=== PATIENT | female | born 1985 | race American Indian/Alaskan Native ===

== ENCOUNTER 2022-02-01 22:38 | Emergency (ER) | payer MEDICAID ==
[2022-02-01 23:03] VITALS: BP 135/91
[2022-02-02] MEDS ORDERED: ACETAMINOPHEN 500 MG TAB PO ONE (01:14)
[2022-02-02] MEDS ORDERED: IBUPROFEN 600 MG TAB PO ONE (01:14)
--- NOTE | 2022-02-02 02:51 | Cat Scan Report ---
CT CERVICAL SPINE WITHOUT CONTRAST INDICATION / CLINICAL INFORMATION: HEAD INJURY FROM A FALL, NOW WITH NECK PAIN. TECHNIQUE: Axial CT images were obtained through the cervical spine. Sagittal and coronal reformatted images were produced. All CT scans at this location are performed using CT dose reduction for ALARA by means of automated exposure control. COMPARISON: None available. FINDINGS: SKULL BASE: No significant abnormality of the skull base. CRANIOCERVICAL JUNCTION: No significant abnormality of the craniocervical junction. ALIGNMENT: No significant abnormality of alignment. VERTEBRAL BODIES: Vertebral body heights fairly uniform throughout. No acute fracture. DISK SPACES: Disk spaces are fairly uniform throughout. FACET JOINTS: No significant abnormality of facet articulations. No acute fractures. CENTRAL CANAL: No severe central stenosis. SOFT TISSUES: No significant abnormality of soft tissues or musculature. THYROID: No significant abnormality. UPPER CHEST: No significant abnormality of the visualized chest. ADDITIONAL FINDINGS: None. IMPRESSION: 1. No evidence of acute osseous injury. Signer Name: Lazaro Holliday II, MD Signed: 02/02/2022 2:47 AM Workstation Name: [id number]
--- NOTE | 2022-02-02 02:51 | Cat Scan Report ---
CT HEAD WITHOUT CONTRAST INDICATION / CLINICAL INFORMATION: HEAD INJURY FROM A FALL, NOW WITH HEAD PAIN. TECHNIQUE: CT head was performed without administration of intravenous contrast. All CT scans at this location are performed using CT dose reduction for ALARA by means of automated exposure control. COMPARISON: None available. FINDINGS: CEREBRAL HEMISPHERES: There is no evidence of large territorial infarction or significant abnormality of gibbons-white matter differentiation. Ventricles within normal limits. No midline shift. Basal ciste rns patent. HEMORRHAGE: None. CEREBELLUM / BRAINSTEM: No significant abnormality. ORBITS: No significant abnormality. SOFT TISSUES: No significant abnormality. SKULL: No significant abnormality. PARANASAL SINUSES / MASTOID AIR CELLS: Normal as visualized. ADDITIONAL FINDINGS: None. IMPRESSION: 1. No acute intracranial abnormality. Signer Name: Lazaro Holliday II, MD Signed: 02/02/2022 2:46 AM Workstation Name: [id number]
--- NOTE | 2022-02-02 03:03 | Emergency Department Report ---
ED Head Trauma HPI - General Chief complaint: Head Injury Stated complaint: FALL/HEAD/BODY PAIN Source: patient Mode of arrival: Ambulatory Limitations: No Limitations - History of Present Illness Initial comments: Patient is a 36-year-old -[place] female with no past medical history who presents to the ED with complaint of acute onset persistent headache, neck pain after she tripped at home and fell down hitting her neck and her head on a piece of furniture about 4 hours ago. Patient states that she has been experiencing lightheadedness persistently with blurry vision since the incident occurred 4 hours ago. Patient denies loss of consciousness, dizziness, syncope, seizures, nausea and vomiting, change in vision, numbness and tingling or weakness of upper extremities bilaterally, low back pain, chest pain, dental injury or hearing loss. MD Complaint: head injury, other (Neck pain) -: Sudden, hour(s) (4) Arrival Conditions: Negative: C-spine immobilization present, spinal board immobilization present Mechanism of Injury: mechanical fall Location: occipital Loss of Consciousness: no Previous Trauma to this Area: No Place: home Radiation: none Severity: severe Severity scale (0 -10): 7 Quality: sharp, aching Consistency: constant Provoking factors: none known Other Injuries: none Associated Symptoms: denies other symptoms, vision changes (Blurry vision), neck pain. denies: confusion, amnesia, repetitive questioning, nausea, vomiting, vertigo, syncope, numbness, weakness, tingling - Related Data Previous Rx's Medication Instructions Recorded Last Taken Type Ibuprofen [Motrin] 800 mg PO Q8HR PRN #30 tablet 02/02/22 Unknown Rx methOCARBAMOL [Robaxin TAB] 750 mg PO Q8H PRN #21 tab 02/02/22 Unknown Rx Allergies/Adverse reactions: Allergies Allergy/AdvReac Type Severity Reaction Status Date / Time No Known Drug Allergies Allergy Unknown Unknown Verified 02/02/22 01:53 ED Review of Systems ROS: Stated complaint: FALL/HEAD/BODY PAIN Other details as noted in HPI Constitutional: denies: chills, fever Eyes: denies: eye pain, eye discharge, vision change ENT: denies: ear pain, throat pain Respiratory: denies: cough, shortness of breath, wheezing Cardiovascular: denies: chest pain, palpitations Endocrine: no symptoms reported Gastrointestinal: denies: abdominal pain, nausea, diarrhea Genitourinary: denies: urgency, dysuria, discharge Musculoskeletal: arthralgia (Neck pain). denies: back pain, joint swelling Skin: denies: rash, lesions Neurological: headache. denies: weakness, paresthesias Psychiatric: denies: anxiety, depression Hematological/Lymphatic: denies: easy bleeding, easy bruising ED Past Medical Hx - Medications Home Medications: Home Medications Medication Instructions Recorded Confirmed Last Taken Type Ibuprofen [Motrin] 800 mg PO Q8HR PRN #30 tablet 02/02/22 Unknown Rx methOCARBAMOL [Robaxin TAB] 750 mg PO Q8H PRN #21 tab 02/02/22 Unknown Rx ED Physical Exam - General Limitations: No Limitations General appearance: alert, in no apparent distress - Head Head exam: Present: atraumatic, normocephalic, normal inspection - Eye Eye exam: Present: normal appearance, PERRL, EOMI Pupils: Present: normal accommodation - ENT ENT exam: Present: normal exam, normal orophraynx, mucous membranes moist, TM's normal bilaterally, normal external ear exam - Neck Neck exam: Present: normal inspection, tenderness (Palpable cervical paraspinal musculoskeletal tenderness), full ROM, other (No cervical midline tenderness) - Respiratory Respiratory exam: Present: normal lung sounds bilaterally. Absent: respiratory distress, wheezes, rales, rhonchi, stridor, chest wall tenderness, accessory muscle use, decreased breath sounds, prolonged expiratory - Cardiovascular Cardiovascular Exam: Present: regular rate, normal rhythm, normal heart sounds. Absent: systolic murmur, diastolic murmur, rubs, gallop - GI/Abdominal GI/Abdominal exam: Present: soft, normal bowel sounds. Absent: tenderness, guarding, rebound, hyperactive bowel sounds, hypoactive bowel sounds, organomegaly, bruit - Extremities Exam Extremities exam: Present: normal inspection, full ROM, normal capillary refill. Absent: tenderness, pedal edema, joint swelling, calf tenderness - Back Exam Back exam: Present: normal inspection, full ROM. Absent: tenderness, CVA tenderness (R), CVA tenderness (L), muscle spasm, paraspinal tenderness, vertebral tenderness - Neurological Exam Neurological exam: Present: alert, oriented X3, CN II-XII intact, normal gait, reflexes normal - Psychiatric Psychiatric exam: Present: normal affect, normal mood - Skin Skin exam: Present: warm, dry, intact, normal color. Absent: rash ED Course Vital Signs 02/01/22 02/02/22 23:01 03:27 Temperature 98.4 F Pulse Rate 88 88 Respiratory 16 16 Rate Blood Pressure 135/91 Blood Pressure 135/91 [Right] O2 Sat by Pulse 100 100 Oximetry - Radiology Data Radiology results: report reviewed, image reviewed [facility] [address] [place] [address] Cat Scan Report Signed Patient: DOUGLAS PHOENIX MR# : [id number] : 1985 Acct:[id number] Age/Sex: 36 / F ADM Date: 02/01/22 Loc: ED Attending Dr: Ordering Physician: RASHMI GOLDEN Date of Service: 02/02/22 Procedure(s): CT cervical spine wo con Accession Number(s): [id number] cc: RASHMI GOLDEN CT CERVICAL SPINE WITHOUT CONTRAST INDICATION / CLINICAL INFORMATION: HEAD INJURY FROM A FALL, NOW WITH NECK PAIN. TECHNIQUE: Axial CT images were obtained through the cervical spine. Sagittal and coronal reformatted images were produced. All CT scans at this location are performed using CT dose reduction for ALARA by means of automated exposure control. COMPARISON: None available. FINDINGS: SKULL BASE: No significant abnormality of the skull base. CRANIOCERVICAL JUNCTION: No significant abnormality of the craniocervical junction. ALIGNMENT: No significant abnormality of alignment. VERTEBRAL BODIES: Vertebral body heights fairly uniform throughout. No acute fracture. DISK SPACES: Disk spaces are fairly uniform throughout. FACET JOINTS: No significant abnormality of facet articulations. No acute fractures. CENTRAL CANAL: No severe central stenosis. SOFT TISSUES: No significant abnormality of soft tissues or musculature. THYROID: No significant abnormality. UPPER CHEST: No significant abnormality of the visualized chest. ADDITIONAL FINDINGS: None. IMPRESSION: 1. No evidence of acute osseous injury. Signer Name: Luis Presley II, MD Signed: 02/02/2022 2:47 AM Workstation Name: [id number] Transcribed By: MECHELLE Dictated By: LUIS PRESLEY II, MD Electronically Authenticated By: LUIS PRESLEY II, MD Signed Date/Time: 02/02/22246 DD/ 5 TD/TT: [facility] [address] [place] [address] Cat Scan Report Signed Patient: DOUGLAS PHOENIX MR# : [id number] : 1985 Acct:[id number] Age/Sex: 36 / F ADM Date: 02/01/22 Loc: ED Attending Dr: Ordering Physician: RASHMI GOLDEN Date of Service: 02/02/22 Procedure(s): CT head/brain wo con Accession Number(s): [id number] cc: RASHMI GOLDEN CT HEAD WITHOUT CONTRAST INDICATION / CLINICAL INFORMATION: HEAD INJURY FROM A FALL, NOW WITH HEAD PAIN. TECHNIQUE: CT head was performed without administration of intravenous contrast. All CT scans at this location are performed using CT dose reduction for ALARA by means of automated exposure control. COMPARISON: None available. FINDINGS: CEREBRAL HEMISPHERES: There is no evidence of large territorial infarction or significant abnormality of gibbons-white matter differentiation. Ventricles within normal limits. No midline shift. Basal cisterns patent. HEMORRHAGE: None. CEREBELLUM / BRAINSTEM: No significant abnormality. ORBITS: No significant abnormality. SOFT TISSUES: No significant abnormality. SKULL: No significant abnormality. PARANASAL SINUSES / MASTOID AIR CELLS: Normal as visualized. ADDITIONAL FINDINGS: None. IMPRESSION: 1. No acute intracranial abnormality. Signer Name: Luis Presley II, MD Signed: 02/02/2022 2:46 AM Workstation Name: [id number] Transcribed By: MECHELLE Dictated By: LUIS PRESLEY II, MD Electronically Authenticated By: LUIS PRESLEY II, MD Signed Date/Time: 02/02/22 0246 DD/ 0246 TD/TT: - Medical Decision Making This is a 36-year-old -[place] female with no past medical history who presents to the ED with complaint of acute onset persistent headache, neck pain after she tripped at home and fell down hitting her neck and her head on a piece of furniture about 4 hours ago. Patient states that she has been experiencing lightheadedness persistently with blurry vision since the incident occurred 4 hours ago. In the ED, patient is alert and oriented x3 and is not in any distress. Patient was treated for pain in the ED. C-spine CT scan without contrast showed no acute fractures or subluxation. The head CT scan without contrast showed no acute intracranial abnormalities or hemorrhage. On reevaluation, patient's pain is well controlled medication. Patient was thereafter discharged home on medications and advised to follow-up with her primary care physician in 5 to 7 days for reevaluation or return to the ED immediately if symptoms get worse. - Differential Diagnosis Head injury; scalp contusion; cervical sprain; cervical fracture; - Core Measures AMI Core Measures Followed: No Measure Exclusions: not indicated - NEXUS Criteria Focal neurological deficit present: No Midline spinal tenderness present: No Altered level of consciousness: No Intoxication present: No Distracting injury present: No NEXUS results: C-Spine can be cleared clinically by these results. Imaging is not required. Critical care attestation.: If time is entered above; I have spent that time in minutes in the direct care of this critically ill patient, excluding procedure time. ED Disposition Clinical Impression: Cervical paraspinous muscle spasm, Acute post-traumatic headache, not intractable Contusion of face, scalp and neck Qualifiers: Encounter type: initial encounter Qualified Code(s): S00.83XA - Contusion of other part of head, initial encounter Disposition: HOME / SELF CARE / HOMELESS Is pt being admited?: No Does the pt Need Aspirin: No Condition: Stable Instructions: Muscle Cramps and Spasms, [id number], Facial or Scalp Contusion, [id number], Cervical Sprain, [id number], Neck Contusion, [id number] Additional Instructions: The head CT scan without contrast showed no acute intracranial abnormalities or hemorrhage. The C-spine CT scan without contrast showed no cervical disc fractures or subluxations. Therefore your injuries are musculoskeletal following the fall. Take medication as needed for pain and follow-up with your primary care physician in 5 to 7 days for reevaluation or return to the ED immediately if symptoms get worse. Prescriptions: Ibuprofen [Motrin] 800 mg PO Q8HR PRN #30 tablet PRN Reason: Pain , Severe (7-10) methOCARBAMOL [Robaxin TAB] 750 mg PO Q8H PRN #21 tab PRN Reason: Muscle Spasm Referrals: [facility] [Provider Group] - 7-10 days Forms: Work/School Release Form(ED) Time of Disposition: 03:01 Print Language: FRISIAN
== END 2022-02-02 03:30 | disposition home or self-care (01) ==
LOC: ED 22:38
DX: S00.83XA Contusion of other part of head, initial encounter (principal); M62.838 Other muscle spasm; G44.319 Acute post-traumatic headache, not intractable; W19.XXXA Unspecified fall, initial encounter; Y93.89 Activity, other specified; Y92.89 Other specified places as the place of occurrence of the external cause; Y99.8 Other external cause status
CPT/HCPCS: 70450; 72125; 99283